=== PATIENT | male | born 1990 | race Caucasian/White ===

== ENCOUNTER 2021-08-26 04:09 | Emergency (ER) | payer BC ==
[2021-08-26] MEDS ORDERED: Amoxicillin/Clavulanate K 875-125 MG Tab PO ONE (04:57)
[2021-08-26] MEDS ORDERED: Acetaminophen/oxyCODONE 325-5 MG Tab PO ONE (04:57)
== END 2021-08-26 05:11 | disposition home or self-care (01) ==
LOC: MW.ED 04:09
DX: K04.7 Periapical abscess without sinus (principal)
CPT/HCPCS: 99283; A9270-GY

== ENCOUNTER 2021-10-01 02:35 | Emergency (ER) | payer BC ==
[2021-10-01] MEDS ORDERED: Benzocaine 20% Topical Spray UD MUCMEM ONE (02:52)
== END 2021-10-01 02:58 | disposition home or self-care (01) ==
LOC: MW.ED 02:35
DX: K04.7 Periapical abscess without sinus (principal)
CPT/HCPCS: 99283; A9270